=== PATIENT | female | born 1985 | race Caucasian/White ===

== ENCOUNTER 2020-09-30 15:05 | Emergency (ER) | payer OTHER, MEDICAID ==
[~2020-09-30] VITALS: Ht 165.1 cm; Wt 81.7 kg
[2020-09-30 15:49] VITALS: BP 117/67
== END 2020-09-30 15:51 | disposition home or self-care (01) ==
LOC: M.ERS 15:05
DX: S61.211A Laceration without foreign body of left index finger without damage to nail, initial encounter (principal); Z90.49 Acquired absence of other specified parts of digestive tract; W25.XXXA Contact with sharp glass, initial encounter; Y93.89 Activity, other specified; Y92.89 Other specified places as the place of occurrence of the external cause; Y99.9 Unspecified external cause status

== ENCOUNTER 2021-02-07 19:09 | Emergency (ER) | payer OTHER, MEDICAID ==
[~2021-02-07] VITALS: Ht 165.1 cm; Wt 83.9 kg
[2021-02-07] MEDS ORDERED: BACTRIM DS TAB1 EACH PO (19:37)
[2021-02-07] MEDS ORDERED: CEPHALEXIN500 MG PO (19:37)
[2021-02-07 19:46] VITALS: BP 110/72
== END 2021-02-07 19:33 | disposition home or self-care (01) ==
LOC: M.ERS 19:09
DX: L03.116 Cellulitis of left lower limb (principal); W57.XXXA Bitten or stung by nonvenomous insect and other nonvenomous arthropods, initial encounter; Y93.89 Activity, other specified; Y92.89 Other specified places as the place of occurrence of the external cause; Y99.8 Other external cause status; Z90.89 Acquired absence of other organs; Z90.49 Acquired absence of other specified parts of digestive tract

== ENCOUNTER 2021-08-11 16:01 | Emergency (ER) | payer OTHER, MEDICAID ==
[~2021-08-11] VITALS: Ht 165.1 cm; Wt 83.9 kg
[~2021-08-11 16:01] MED LIST: BACTRIM DS TAB1 EACH PO; CEPHALEXIN500 MG PO
[2021-08-11] MEDS ORDERED: ZOVIRAX5 GM TOP (16:40)
[2021-08-11] MEDS ORDERED: ACYCLOVIR 800800 MG PO (16:40)
[2021-08-11 16:42] VITALS: BP 109/60
== END 2021-08-11 16:43 | disposition home or self-care (01) ==
LOC: M.ERS 16:01
DX: L98.8 Other specified disorders of the skin and subcutaneous tissue (principal); Z90.49 Acquired absence of other specified parts of digestive tract; Z90.89 Acquired absence of other organs